=== PATIENT | female | born 1995 | race Caucasian/White ===

== ENCOUNTER 2023-10-11 12:08 | Outpatient (CLI) | payer BC ==
[2023-10-11 10:36] VITALS: BP 108/72
[2023-10-11] MEDS ORDERED: PRENATAL TABLE1 EAC1 (13:09)
[2023-10-11] MEDS ORDERED: RINGERS SOLUTION,LACTATED 1,000 ML IV SCH (13:15)
[2023-10-11 14:18] VITALS: BP 108/72
== END 2023-10-11 15:33 | disposition left against medical advice (07) ==
LOC: OBS/DEL 12:08
PROVIDERS: ATTEND Obstetrics & Gynecology
DX: O26.893 Other specified pregnancy related conditions, third trimester (principal); Z3A.34 34 weeks gestation of pregnancy